=== PATIENT | female | born 1950 ===

== ENCOUNTER 2019-03-08 07:52 | Day surgery (SDC) | payer OTHER ==
[~2019-03-08] VITALS: Ht 165.1 cm; Wt 77.4 kg
[~2019-03-08 07:52] MED LIST: Acidophilus La100 GM; Acidophilus1 EAC1 PO; Aspirin EC81 MG PO; CALCIUM CIT 311 EACH PO; CHOL10002; CVS FISH OIL; CYAN100; Calcium Citrat1 EA10; Estrace Vagin42.5 GM VAG; FEXPSEER; FISH OIL 1,2001 EACH PO; HYDACE5 PO; HYDSUL200; MAGNESIUM250 MG PO; Magnesium250 MG; OLOP.1OPSO; VITAMIN D31000 UNIT PO; Vitamin B-121000 MCG PO
--- NOTE | 2019-03-08 08:50 | NUR ---
03/08/19 0850 Apryl Dacosta PATIENT AND FAMILY NOTIFIED THAT DR. IRVIN IS DELAYED. CALL LIGHT WITHIN REACH. WILL CONTINUE TO KEEP PATIENT UPDATED.
== END 2019-03-08 12:58 | disposition home or self-care (01) ==
LOC: ORSCSDS 07:52
PROVIDERS: Internal Medicine Gastroenterology
PROC: 0DJD8ZZ Inspection of Lower Intestinal Tract, Via Natural or Artificial Opening Endoscopic (ICD-10-PCS; principal; 2019-03-08 09:00)
DX: Z12.11 Encounter for screening for malignant neoplasm of colon (principal); Z86.010 Personal history of colon polyps; Z83.71 Family history of colonic polyps; K57.30 Diverticulosis of large intestine without perforation or abscess without bleeding; K64.8 Other hemorrhoids
CPT/HCPCS: J2704; J7120